=== PATIENT | female | born 1965 | race Caucasian/White ===

== ENCOUNTER 2022-01-07 15:14 | Inpatient (IN) | payer BC, SELFPAY ==
[~2022-01-07 15:14] MED LIST: ISOVUE-370 76%-LOCM 1 ML ONE
[2022-01-07] MEDS ORDERED: Vancomycin 1.5 GRAM/300 ML BAG 1.5 GM in Premix Bag 1 BAG IVPB SCH (17:30)
[2022-01-07 17:38] LABS: Hemoglobin 14.6 g/dL (12.0-16.0); Mean Corpuscular HGB CONC 33.1 g/dL (32.0-36.0); Mean Corpuscular Hemoglobin 30.6 pg (27.0-31.0); Mean Corpuscular Volume 92.3 fL (78.0-98.0); Mean Platelet Volume 8.5 fL (7.4-10.4); Platelet Count 115 thou/uL (130-400); Red Blood Cell (RBC) Count 4.78 mill/uL (4.20-5.40); White Blood Cell (WBC) Count 11.1 thou/uL (4.8-10.8)
[2022-01-07 17:53] LABS: ALT (SGPT) 135 U/L (8-55); AST (SGOT) 73 U/L (5-34); Albumin 3.9 g/dL (3.5-5.0); Alkaline Phosphatase 122 U/L (40-110); Anion Gap 13 mmol/L (10-20); BUN (Urea Nitrogen) 10 mg/dL (9.8-20.1); Bilirubin, Total 0.6 mg/dL (0.2-1.2); Calc. Creatinine Clearance 0 mL/min (70-130); Calcium 9.1 mg/dL (7.8-10.44); Carbon Dioxide 24 mmol/L (22-29); Chloride 105 mmol/L (98-107); Estimated GFR 85; Globulin 3.1 g/dL (2.4-3.5); Glucose 108 mg/dL (70-105); Potassium 3.9 mmol/L (3.5-5.1); Sodium 138 mmol/L (136-145)
[2022-01-07] MEDS ORDERED: Cefepime 2 GM VIAL ONE (17:53)
[2022-01-07 18:06] LABS: #Basophils 0.1 thou/uL (0.0-0.2); #Eosinphils 0.1 thou/uL (0.0-0.7); #Monocytes 0.8 thou/uL (0.11-0.59); #Neutrophils 9.1 thou/uL (1.40-6.50); %Basophils 0.5 % (0.0-1.0); %Eosinophils 0.7 % (0.0-10.0); %Lymphocytes 9.1 % (21.0-51.0); %Monocytes 7.3 % (0.0-10.0); %Neutrophils 82.4 % (42.0-75.0); MDiff Complete? YES; Platelet Morphology Comment Appears Decreased; Polychromasia SLIGHT = 2-3 cells (100X) (0-2/hpf)
[2022-01-07] MEDS ORDERED: Ondansetron ODT 4 MG TAB ONE (18:48)
[2022-01-07] MEDS ORDERED: Ondansetron PF 4 MG/2 ML Vial ONE ×2 (18:49→18:51)
[2022-01-07] MEDS ORDERED: Morphine 4 MG/ML VIAL ONE (18:55)
[2022-01-07] MEDS ORDERED: Acetaminophen 500 MG TAB ONE (19:51)
[2022-01-07] MEDS ORDERED: Calcium Carbonate 500 MG ChewTAB PO PRN (20:15)
[2022-01-07] MEDS ORDERED: Loperamide HCl 2 MG CAP PO PRN (20:15)
[2022-01-07] MEDS ORDERED: Ondansetron PF 4 MG/2 ML Vial IVP PRN (20:15)
[2022-01-07] MEDS ORDERED: Bisacodyl 5 MG TAB PO PRN (20:15)
[2022-01-07] MEDS ORDERED: Senokot S 8.6-50 MG TAB PO PRN (20:15)
[2022-01-07] MEDS ORDERED: Bisacodyl 10 MG SUPP PR PRN (20:15)
[2022-01-07] MEDS ORDERED: Acetaminophen 325 MG TAB PO PRN (20:15)
[2022-01-07 22:04] LABS: #Basophils 0.1 thou/uL (0.0-0.2); #Lymphocytes 1.3 thou/uL (1.20-3.40); #Monocytes 0.8 thou/uL (0.11-0.59); #Neutrophils 8.9 thou/uL (1.40-6.50); %Basophils 0.7 % (0.0-1.0); %Eosinophils 0.3 % (0.0-10.0); %Monocytes 6.9 % (0.0-10.0); Hemoglobin 13.5 g/dL (12.0-16.0); Mean Corpuscular HGB CONC 34.2 g/dL (32.0-36.0); Mean Corpuscular Hemoglobin 31.4 pg (27.0-31.0); Mean Corpuscular Volume 91.9 fL (78.0-98.0); Mean Platelet Volume 8.5 fL (7.4-10.4); Platelet Count 111 thou/uL (130-400); RBC Distribution Width 13.9 % (11.5-14.5); Red Blood Cell (RBC) Count 4.31 mill/uL (4.20-5.40); White Blood Cell (WBC) Count 11.1 thou/uL (4.8-10.8)
[2022-01-07 22:24] LABS: ALT (SGPT) 116 U/L (8-55); AST (SGOT) 58 U/L (5-34); Albumin 3.6 g/dL (3.5-5.0); Alkaline Phosphatase 112 U/L (40-110); Anion Gap 13 mmol/L (10-20); BUN (Urea Nitrogen) 9 mg/dL (9.8-20.1); Bilirubin, Total 0.6 mg/dL (0.2-1.2); Calc. Creatinine Clearance 119 mL/min (70-130); Calcium 8.3 mg/dL (7.8-10.44); Carbon Dioxide 21 mmol/L (22-29); Chloride 108 mmol/L (98-107); Estimated GFR 97; Globulin 2.7 g/dL (2.4-3.5); Glucose 106 mg/dL (70-105); Potassium 3.9 mmol/L (3.5-5.1); Protein, Total 6.3 g/dL (6.0-8.3); Sodium 138 mmol/L (136-145)
[2022-01-08] MEDS ORDERED: HYDROcodone/Acetaminophen 5/325 mg Tablet ONE ×3 (01:49→10:52)
[2022-01-08] MEDS ORDERED: Ondansetron PF 4 MG/2 ML Vial ONE (01:49)
[2022-01-08] MEDS: HYDROcodone/Acetaminophen 5/325 mg Tablet PO PRN ×4 (02:01→14:31)
[2022-01-08] MEDS ORDERED: Nicotine 14 MG PATCH ONE (04:48)
[2022-01-08 04:55] LABS: #Eosinphils 0.2 thou/uL (0.0-0.7); #Lymphocytes 1.5 thou/uL (1.20-3.40); #Monocytes 0.9 thou/uL (0.11-0.59); %Basophils 0.3 % (0.0-1.0); %Eosinophils 1.7 % (0.0-10.0); %Lymphocytes 13.9 % (21.0-51.0); %Monocytes 8.1 % (0.0-10.0); Hemoglobin 12.5 g/dL (12.0-16.0); Mean Corpuscular HGB CONC 33.6 g/dL (32.0-36.0); Mean Corpuscular Hemoglobin 31.4 pg (27.0-31.0); Mean Corpuscular Volume 93.5 fL (78.0-98.0); Mean Platelet Volume 8.8 fL (7.4-10.4); Platelet Count 107 thou/uL (130-400); RBC Distribution Width 13.8 % (11.5-14.5); Red Blood Cell (RBC) Count 3.98 mill/uL (4.20-5.40); White Blood Cell (WBC) Count 10.5 thou/uL (4.8-10.8)
[2022-01-08] MEDS: Nicotine 14 MG PATCH TD SCH ×2 (04:56→21:03)
[2022-01-08 05:12] LABS: Albumin 3.1 g/dL (3.5-5.0); Anion Gap 11 mmol/L (10-20); BUN (Urea Nitrogen) 15 mg/dL (9.8-20.1); Calc. Creatinine Clearance 114 mL/min (70-130); Calcium 8.2 mg/dL (7.8-10.44); Carbon Dioxide 23 mmol/L (22-29); Chloride 108 mmol/L (98-107); Estimated GFR 93; Glucose 106 mg/dL (70-105); Phosphorus 2.9 mg/dL (2.3-4.7); Potassium 3.9 mmol/L (3.5-5.1); Sodium 138 mmol/L (136-145)
[2022-01-08] MEDS ORDERED: Clindamycin/D5W 600 mg/50 ml Premix Bag ONE (05:44)
[2022-01-08] MEDS: Clindamycin/D5W 600 MG in Premix Bag 1 BAG IVPB SCH ×2 (05:53→13:43)
[2022-01-08] MEDS: VANCOMYCIN 1.25 GM/250 ML BAG 1.25 GM in Premix Bag 1 BAG IVPB SCH ×2 (06:00→18:47)
[2022-01-08] MEDS ORDERED: VANCOMYCIN IVPB SCH (06:00)
[2022-01-08] MEDS ORDERED: SODIUM CHLORIDE 0.9% IVPB SCH (06:00)
[2022-01-08 09:43] LABS: Hemoglobin A1c 5.4 % (4.0-6.0)
[2022-01-08 09:56] LABS: HBCM Index 0.07 S/CO (0-0.79); HBSAg Index 0.29 S/CO (0-0.99); HIV (1/2) Antibody/Antigen Non-Reactive (NonReactive); HIV 1/2 INDEX 0.13 S/CO (<1.00); Hep A IgM AB Non-Reactive (NonReactive); Hep A IgM S/CO 0.12 S/CO (0-0.79); Hep B Surf Ag Non-Reactive S/CO (NonReactive); Hep C IgG Ab Non-Reactive (NonReactive); Hep C Index 0.05 S/CO (0-0.79); Hepatitis B Core IgM Abs Non-Reactive (NonReactive)
[2022-01-08] MEDS ORDERED: Piperacillin/Tazobactam 3.375 GM VIAL ONE (10:52)
[2022-01-08] MEDS ORDERED: Piperacillin/Tazobactam 3.375 GM in Sodium Chloride 0.9% 100 ML IVPB SCH ×2 (11:00→15:00)
[2022-01-08] MEDS: [UNRECOGNIZED DRUG - REMARK] FS SCH ×2 (12:07→20:31)
[2022-01-08 16:15] VITALS: BMI 33.1
[2022-01-08 18:32] LABS: Amphetamine Not Detected (NotDetected); Barbiturates Screen Not Detected (NotDetected); Benzodiazepine Screen Not Detected (NotDetected); Cocaine Metabolite Screen Not Detected (NotDetected); Methadone Not Detected (NotDetected); Methamphetamine Not Detected (NotDetected); Opiate Screen Detected (NotDetected); Oxycodone Screen Not Detected (NotDetected); Phencyclidine (PCP) Not Detected (NotDetected); THC/Cannabinoid Screen Not Detected (NotDetected); Tricyclic Screen Not Detected (NotDetected)
[2022-01-08] MEDS: HYDROcodone/Acetaminophen 7.5/325 mg Tablet PO PRN ×2 (18:47→22:37)
[2022-01-08] MEDS: Gabapentin 300 MG CAP PO SCH (21:05)
[2022-01-08] MEDS: Piperacillin/Tazobactam 3.375 GM in Sodium Chloride 0.9% 100 ML IVPB SCH (21:07)
[2022-01-08] MEDS: Neomycin/Polymyxin/HC Otic Solution 10 ML BOT L EAR SCH (22:37)
[2022-01-09] MEDS: HYDROcodone/Acetaminophen 7.5/325 mg Tablet PO PRN ×4 (03:56→18:18)
[2022-01-09] MEDS ORDERED: Piperacillin/Tazobactam 3.375 GM VIAL ONE (06:03)
[2022-01-09 06:06] LABS: Vancomycin, Trough 10.1 ug/mL
[2022-01-09] MEDS: Piperacillin/Tazobactam 3.375 GM in Sodium Chloride 0.9% 100 ML IVPB SCH ×3 (06:28→22:04)
[2022-01-09] MEDS: Gabapentin 300 MG CAP PO SCH ×3 (08:44→22:02)
[2022-01-09] MEDS: Neomycin/Polymyxin/HC Otic Solution 10 ML BOT L EAR SCH ×4 (08:45→22:04)
[2022-01-09] MEDS: VANCOMYCIN 1.25 GM/250 ML BAG 1.25 GM in Premix Bag 1 BAG IVPB SCH ×3 (08:45→12:46)
[2022-01-09] MEDS: Nicotine 14 MG PATCH TD SCH (14:12)
[2022-01-09] MEDS: [UNRECOGNIZED DRUG - REMARK] FS SCH (20:20)
[2022-01-10] MEDS: VANCOMYCIN 1.25 GM/250 ML BAG 1.25 GM in Premix Bag 1 BAG IVPB SCH ×2 (01:48→12:26)
[2022-01-10] MEDS: Melatonin 3 MG TAB PO PRN (01:52)
[2022-01-10] MEDS: HYDROcodone/Acetaminophen 7.5/325 mg Tablet PO PRN ×2 (01:52→16:21)
[2022-01-10] MEDS: Piperacillin/Tazobactam 3.375 GM in Sodium Chloride 0.9% 100 ML IVPB SCH ×3 (06:20→21:26)
[2022-01-10] MEDS: Gabapentin 300 MG CAP PO SCH ×3 (08:27→21:25)
[2022-01-10] MEDS: Neomycin/Polymyxin/HC Otic Solution 10 ML BOT L EAR SCH ×4 (08:28→21:27)
[2022-01-10] MEDS: Nicotine 14 MG PATCH TD SCH (14:45)
[2022-01-10] MEDS: [UNRECOGNIZED DRUG - REMARK] FS SCH (20:35)
[2022-01-10 22:12] LABS: HIV-1 Quantitative, RNA PCR <20 copies/mL (.)
[2022-01-11] MEDS: HYDROcodone/Acetaminophen 7.5/325 mg Tablet PO PRN ×2 (00:48→20:14)
[2022-01-11] MEDS: Melatonin 3 MG TAB PO PRN ×2 (00:48→23:20)
[2022-01-11] MEDS: VANCOMYCIN 1.25 GM/250 ML BAG 1.25 GM in Premix Bag 1 BAG IVPB SCH (00:50)
[2022-01-11] MEDS: Piperacillin/Tazobactam 3.375 GM in Sodium Chloride 0.9% 100 ML IVPB SCH (06:18)
[2022-01-11] MEDS: Neomycin/Polymyxin/HC Otic Solution 10 ML BOT L EAR SCH ×4 (08:05→20:21)
[2022-01-11] MEDS: Gabapentin 300 MG CAP PO SCH ×3 (08:05→20:03)
[2022-01-11] MEDS: Cephalexin 250 MG CAP PO SCH ×3 (12:27→23:20)
[2022-01-11 12:30] LABS: Vancomycin, Trough 12.1 ug/mL
[2022-01-11] MEDS: Nicotine 14 MG PATCH TD SCH (13:12)
[2022-01-11] MEDS: Ciprofloxacin 500 MG TAB PO SCH (20:06)
[2022-01-11] MEDS: [UNRECOGNIZED DRUG - REMARK] FS SCH (20:20)
[2022-01-12] MEDS: Ciprofloxacin 500 MG TAB PO SCH (05:13)
[2022-01-12] MEDS: HYDROcodone/Acetaminophen 7.5/325 mg Tablet PO PRN (05:13)
[2022-01-12] MEDS: Cephalexin 250 MG CAP PO SCH ×2 (05:13→13:29)
[2022-01-12 07:35] VITALS: BP 114/72; TEMP 98.2
[2022-01-12] MEDS: Gabapentin 300 MG CAP PO SCH ×2 (08:17→14:00)
[2022-01-12] MEDS: Neomycin/Polymyxin/HC Otic Solution 10 ML BOT L EAR SCH ×2 (08:17→13:29)
[2022-01-12] MEDS: Nicotine 14 MG PATCH TD SCH (13:29)
== END 2022-01-12 14:24 | disposition home or self-care (01) | DRG 872 ==
LOC: ERS 15:14 → ERHOLD 19:25 → T4-A 20:16
PROVIDERS: ADMIT Internal Medicine; ATTEND Internal Medicine
DX: A41.9 Sepsis, unspecified organism (principal); L03.211 Cellulitis of face; H60.22 Malignant otitis externa, left ear; Z20.822 Contact with and (suspected) exposure to COVID-19; F17.210 Nicotine dependence, cigarettes, uncomplicated; R74.01 Elevation of levels of liver transaminase levels; Z88.8 Allergy status to other drugs, medicaments and biological substances; Z71.6 Tobacco abuse counseling
CPT/HCPCS: 36415; 70487; 76705; 80053; 80069; 80074; 80202; 80306; 83036; 83605; 85025; 87040; 87070; 87205; 87389; 87536; 93005; 96365; 96366; 96367; 96375; J0692; J0744; J2270; J2405; J2543; J3370; J3490; J7050; Q0162; Q9966; U0003; U0005

== ENCOUNTER 2023-03-31 19:36 | Emergency (ER) | payer BC ==
[~2023-03-31 19:36] MED LIST changes: -ISOVUE-370 76%-LOCM 1 ML ONE; +Iopamidol-370 76% 500 ML MDV (1 ML CHARGE) ONE
[2023-03-31] MEDS ORDERED: Famotidine/PF 20 mg/2ml Vial ONE (20:36)
[2023-03-31] MEDS ORDERED: Dexamethasone 10 MG/ML VIAL ONE (20:36)
[2023-03-31] MEDS ORDERED: diphenhydrAMINE 50 MG/ML VIAL ONE (20:36)
[2023-03-31 20:48] LABS: #Basophils 0.1 thou/uL (0.0-0.2); #Eosinphils 0.1 thou/uL (0.0-0.7); #Monocytes 0.8 thou/uL (0.11-0.59); #Neutrophils 7.6 thou/uL (1.40-6.50); %Basophils 0.5 % (0.0-1.0); %Lymphocytes 18.2 % (21.0-51.0); Hematocrit 43.5 % (36.0-47.0); Hemoglobin 15.1 g/dL (12.0-16.0); Mean Corpuscular HGB CONC 34.7 g/dL (32.0-36.0); Mean Corpuscular Hemoglobin 30.3 pg (27.0-31.0); Mean Corpuscular Volume 87.2 fl (78.0-98.0); Mean Platelet Volume 10.1 fL (7.4-10.4); Platelet Count 194 10x3/uL (130-400); RBC Distribution Width 14.6 % (11.5-14.5); Red Blood Cell (RBC) Count 4.99 mill/uL (4.20-5.40); White Blood Cell (WBC) Count 10.5 10x3/uL (4.8-10.8)
[2023-03-31 21:11] LABS: ALT (SGPT) 23 U/L (8-55); AST (SGOT) 21 U/L (5-34); Albumin 4.5 g/dL (3.5-5.0); Alkaline Phosphatase 79 U/L (40-110); Anion Gap 14 mmol/L (10-20); BUN (Urea Nitrogen) 17 mg/dL (9.8-20.1); Bilirubin, Total 0.2 mg/dL (0.2-1.2); Calc. Creatinine Clearance 0 mL/min (70-130); Calcium 9.9 mg/dL (7.8-10.44); Carbon Dioxide 27 mmol/L (22-29); Chloride 104 mmol/L (98-107); Estimated GFR 76; Globulin 2.5 g/dL (2.4-3.5); Glucose 105 mg/dL (70-105); Potassium 4.2 mmol/L (3.5-5.1); Sodium 141 mmol/L (136-145)
== END 2023-03-31 23:34 | disposition home or self-care (01) ==
LOC: ERS 19:36
DX: L03.211 Cellulitis of face (principal); L25.9 Unspecified contact dermatitis, unspecified cause; K11.20 Sialoadenitis, unspecified; F17.210 Nicotine dependence, cigarettes, uncomplicated
CPT/HCPCS: 70487; 80053; 83605; 85025; 87040; 96374; 96375; J1100; J1200; Q9967; S0028